=== PATIENT | male | born 1935 | race Caucasian/White ===

== ENCOUNTER → 2017-02-16 | Day surgery (SDC) | payer MEDICARE, BC ==
--- NOTE | 2017-02-05 13:16 | MH ---
cc: CRISTI MACIEL DATE OF ADMISSION: 02/16/2017 ADMITTING DIAGNOSIS Cataract left eye. HISTORY OF PRESENT ILLNESS This 81-year-old white male is coming through [facility] for the purpose of a lens extraction of the left eye with intraocular lens implant under local anesthesia. He had a similar procedure in the right eye in 2006, followed by YAG laser posterior capsulotomy in that eye in 2011 and has done well postoperatively. He now notices decreasing acuity in the left eye interfering with daily activities and has elected to have a cataract procedure on the left eye at this time. His best corrected visual acuity is 20/20-1 in the right eye and 20/50 in the left eye in room light. PAST MEDICAL HISTORY 1. The patient has a history of gout. 2. Hypertension. 3. Irregular heartbeat. 4. Cholesterol problems. 5. Arthritis. 6. Macular degeneration which is dry in the right eye and wet in the left eye and has been undergoing treatment with his retinal specialist who has cleared him for this procedure and given him injections recently. PAST SURGICAL HISTORY 1. Herniated disc. 2. Right finger surgery. 3. Left major toe surgery. 4. Hemorrhoid surgery. 5. Tonsillectomy. 6. Cataract surgery on the right eye as mentioned previously along with YAG laser posterior capsulotomy. 7. Right shoulder surgery. 8. Heart stent. 9. Replacement of the joint large toe. 10. Left large toe gout surgery. 11. Left carpal tunnel procedure. DAILY MEDICATIONS 1. Clopidogrel. 2. Gabapentin. 3. Baby aspirin. 4. Lisinopril. 5. Metoprolol. 6. Atorvastatin. 7. Allopurinol. 8. Pain management back injections. ALLERGIES He has no known allergies. SOCIAL HISTORY He has been a one pack per day smoker for 40 years and does not drink alcohol. FAMILY HISTORY Non-contributory. REVIEW OF SYSTEMS HEAD: Patient denies severe headaches, dizziness or recent head injury. EARS: Patient has hearing loss and tinnitus, ringing in his ears. He denies ear pain or discharge. NOSE: Patient denies nasal discharge, obstruction or frequent colds. MOUTH AND THROAT: Patient denies soreness of the mouth or tongue, bleeding gums, trouble swallowing, changes in voice or sore throat. NECK: He has some arthritis limiting some neck movement. The patient denies neck pain or swelling or neck injury. CARDIOPULMONARY SYSTEM: Patient denies shortness of breath, orthopnea, chronic cough, sputum production, hemoptysis, chest pain, wheezing, palpitations or light-headedness. GI SYSTEM: The patient has hemorrhoids. He denies poor appetite, nausea, vomiting, abdominal pain, ulcers or change in bowel habits. SYSTEM: The patient has urinary frequency due to fluid intake and medications day and night. No dysuria or change in urine color. NERVOUS SYSTEM: Patient denies convulsions, vertigo, stroke, numbness or weakness. PHYSICAL EXAMINATION: VITAL SIGNS: Blood pressure 128/76, pulse 62, respirations 16. HEAD: Normocephalic, atraumatic. NOSE: Without rhinorrhea. THROAT: Clear. NECK: Supple. CHEST: Clear. HEART: Regular rhythm. ABDOMEN: Without tenderness. EXTREMITIES: With left ankle edema due to gout which is mild. NEUROLOGIC: Within normal limits. MENTAL STATUS: Within normal limits. EYE EXAM: The patient's best corrected visual acuity is 20/20 -1 in the right eye and 20/50 in the left eye. Visual hager are full to confrontation testing. Extraocular muscle exam reveals full versions with orthophoria at distance and near. Pupils are 3 mm, equal, round, and reactive to light without afferent defect. The anterior segment examination reveals dermatochalasis of the eyelid skin. A posterior chamber intraocular lens is in place in the right eye. There are nuclear sclerotic, posterior subcapsular and cortical cataract changes present in the left eye. Intraocular pressure is 18 in the right eye and 20 in the left by applanation tonometry. Dilated fundus exam revealed sharp disks with cup-to-disk ratio of 0.3 in the right eye and 0.35 in the left. The patient has dry macular degeneration in the right eye and wet macular degeneration in the left. A posterior vitreous detachment is present bilaterally with vitreous floater in the left eye. A small atrophic area is noted inferotemporally in the left fundus. IMPRESSION: 1. Cataract left eye. 2. Pseudophakia right eye. 3. Macular degeneration, right eye dry, left eye wet. PLAN: Lens extraction of the left eye with intraocular lens implant under local anesthesia through [facility]. The patient has been cleared medically. He has been counseled as to the risks, benefits and alternatives and has elected to proceed. I feel that cataract surgery will improve the quality of life and activities of daily living in this patient. MD GURDEEP Hughes/RAJEEV /12:44 PM /12:56 PM
[~2017-02-16] VITALS: Ht 175.3 cm; Wt 106.4 kg
[~2017-02-16] MED LIST: ACETYLCHOLINE CHL OPHT SOLN 1:100 2 ML VIAL ONE; ALLO100T PO; AREDS 2 PO; ASPI81CH6 CHEW; ATOR80TA45 PO; CHLORHEXIDINE GLUCONATE 2 % 1 PACK (2 CLOTHS) TOPICAL PRN; CLOP75TA PO; EPINEPHrine HCL (1:1000) 1 MG/ML VIAL OTHER ONE; EPINEPHrine HCL PF/SF (1:1000) 1 MG/ML AMP I-OCULAR ONE; FISH100020 PO; GABA300C5 PO; HYALURONIDASE/LIDOCAINE/BUPIVACAINE 5 ML SYR LEFT EYE ONE; LACTATED RINGER'S 1000 ML IV PRN; LIDOCAINE HCL 2% PF 5 ML VIAL ONE; LISI20TA PO; METO25TA3 PO; METOPROLOL TARTRATE 25 MG TAB PO PRN; MULT10CA PO; PILOCARPINE HCL 2% OPHT SOLN 15 ML BTL ONE; POVIDONE IODINE 5% (ANTISEPSIS KIT) 4 APPLICATIONS EACH NARE PRN; PROPARACAINE HCL 0.5% OPHT SOLN 15 ML BTL LEFT EYE ONE; PROPOFOL 200 MG/20 ML AMP ONE; SODIUM CHLORID 0.9% 500 ML IV PRN; SOUR1000 PO; TOBRAMYCIN/DEXAMETHASONE OPTH OINT 3.5 GM TUBE ONE; VISCOAT OPHT IRRIG SOLN 0.75 ML SYRINGE ONE
[2017-02-16 09:00] VITALS: PULSE 60
[2017-02-16] MEDS: CYCLOPENTOLATE HCL 1% OPHT SOLN 2 ML BTL LEFT EYE SCH ×4 (09:03→09:12)
[2017-02-16] MEDS: DICLOFENAC SOD 0.1% OPHT SOLN 2.5 ML BTL LEFT EYE SCH ×4 (09:03→09:12)
[2017-02-16] MEDS: TROPICAMIDE 1% OPHT SOLN 15 ML BTL LEFT EYE SCH ×4 (09:03→09:12)
[2017-02-16] MEDS: PHENYLEPHRINE HCL 2.5% OPTH SOLN 2 ML BTL LEFT EYE SCH ×4 (09:03→09:12)
[2017-02-16] MEDS: GATIFLOXACIN 0.5% OPHT SOLN 2.5 ML BTL LEFT EYE SCH ×4 (09:03→09:15)
[2017-02-16 09:32] VITALS: PULSE 70
[2017-02-16 11:31] VITALS: TEMP 97.9
[2017-02-16 11:55] VITALS: BP 126/70; PULSE 65; RESP 16; O2SAT 95
--- NOTE | 2017-02-16 12:01 | MP ---
cc: CRISTI MERIDA DATE OF SURGERY February 16, 2017 PREOPERATIVE DIAGNOSIS: Cataract left eye. POSTOPERATIVE DIAGNOSIS: Cataract left eye. OPERATION: Extracapsular cataract extraction with posterior chamber intraocular lens implant by phacoemulsification, left eye. SURGEON: Cristi Merida M.D. ANESTHESIA: Local. COMPLICATIONS: None. INDICATIONS: See history and physical previously dictated. OPERATIVE PROCEDURE: The patient had adequate retrobulbar and eyelid blocks administered in the holding area and was brought to the operating room. The left eye was prepped and draped in the usual sterile ophthalmic manner. A lid speculum was inserted in the left eye. A 4-0 silk bridle suture was placed through the conjunctiva near the superior rectus muscle and it was tagged to the drape. A fornix-based conjunctival flap was prepared spanning approximately 5 mm in width. Hemostasis was obtained with wet-field cautery. A 3.5 mm groove was made 1 mm from the limbus and dissected up to the limbus in the form of a scleral pocket incision. A stab incision was then made at the 2 o'clock position. Viscoelastic was injected into the anterior chamber. The anterior chamber was entered with a 2.75 mm keratome through the scleral pocket incision. A 360 degree cotinuous curvilinear capsulorrhexis was then performed. Hydrodissection was utilized to divide the nucleus into inner and outer components and to separate the cortex from the capsule. Phacoemulsification was then utilized to remove the nucleus. The outer nuclear layer was removed with irrigation and aspiration and short bursts of ultrasound as necessary. The cortex was removed with the irrigation/aspiration handpiece. The posterior capsule was polished with the capsule polisher. Viscoelastic was injected into the capsular bag. The intraocular lens was inspected and found to be in good condition. The lens utilized was an Ji, model number SA60AT with a power of +18.5 diopters. The lens was inserted into the capsular bag. The viscoelastic in the anterior chamber was then removed with the irrigation-aspiration handpiece. Viscoelastic was also removed from beneath the intraocular lens. The anterior chamber was filled with Miochol-E through the stab incision and pressurized. The wound was checked for leaks at this pressure and normalized pressure and there were none. The 4-0 bridle suture was removed. The conjunctival flap was brought down over the wound and secured with cautery. Pilocarpine 2% eye drops were instilled topically. The lid speculum was removed. TobraDex ophthalmic ointment was applied. The eye was double patched and shielded. The patient tolerated the procedure well and left the Operating Room in satisfactory condition. MD GURDEEP Hughes/RAJEEV /11:34 AM /11:56 AM
== END | disposition home or self-care (01) ==
LOC: PHSDC 07:57
PROVIDERS: ATTEND Ophthalmology
DX: H26.9 Unspecified cataract (principal)
CPT/HCPCS: 00142; 66984; J0171; J7040; V2632